=== PATIENT | male | born 1990 | race American Indian/Alaskan Native ===

== ENCOUNTER 2021-09-08 19:15 | Emergency (ER) | payer MEDICAID ==
--- NOTE | 2021-09-08 20:39 | Emergency Department Report ---
<KARINA OLIVEROS - Last Filed: 09/09/21 03:42> ED General Adult HPI - General Stated complaint: CHEST PAIN Time Seen by Provider: 09/08/21 20:28 Source: patient - History of Present Illness Initial comments: 31-year-old Megamilbedoce male pulm complaining of chest pain off and on since yesterday of unknown etiology. Ports no hemoptysis no hematemesis medic easy, no fever, chills, sweats. The chest pain is sharp achy in nature and associated with with palpitations from time to time. -: Gradual Radiation: non-radiation Quality: dull Consistency: constant Improves with: none Worsens with: none Associated Symptoms: denies other symptoms, chest pain. denies: loss of appetite, malaise, nausea/vomiting, shortness of breath, syncope, weakness - Related Data Home Medications Medication Instructions Recorded Confirmed Last Taken No Known Home Medications [No 10/26/13 10/26/13 Unknown Reported Home Medications] Allergies Allergy/AdvReac Type Severity Reaction Status Date / Time No Known Allergies Allergy Unverified 10/26/13 22:35 ED Review of Systems Comment: All other systems reviewed and negative ED Past Medical Hx - Past Medical History Hx Hypertension: Yes Hx Psychiatric Treatment: Yes (DEPRESSION) - Surgical History Additional Surgical History: CIRCUMCISION - Social History Smoking Status: Never Smoker Substance Use Type: None - Medications Home Medications: Home Medications Medication Instructions Recorded Confirmed Last Taken Type No Known Home Medications [No 10/26/13 10/26/13 Unknown History Reported Home Medications] ED Physical Exam - General General appearance: alert, in no apparent distress - Head Head exam: Present: atraumatic, normocephalic - Eye Eye exam: Present: normal appearance, PERRL Pupils: Present: normal accommodation - ENT ENT exam: Present: normal exam, mucous membranes moist - Neck Neck exam: Present: normal inspection, full ROM - Respiratory Respiratory exam: Present: normal lung sounds bilaterally. Absent: respiratory distress, rales, rhonchi, chest wall tenderness, accessory muscle use - Cardiovascular Cardiovascular Exam: Present: regular rate, normal rhythm. Absent: tachycardia, irregular rhythm, systolic murmur, diastolic murmur, rubs, gallop - GI/Abdominal GI/Abdominal exam: Present: soft, normal bowel sounds. Absent: tenderness, guarding, hyperactive bowel sounds, hypoactive bowel sounds, organomegaly - Rectal Rectal exam: Present: deferred - Extremities Exam Extremities exam: Present: normal inspection, full ROM, normal capillary refill - Back Exam Back exam: Present: normal inspection. Absent: CVA tenderness (R), CVA tenderness (L), muscle spasm - Neurological Exam Neurological exam: Present: alert, oriented X3, CN II-XII intact - Psychiatric Psychiatric exam: Present: normal affect, normal mood - Skin Skin exam: Present: warm, dry, intact, normal color. Absent: rash ED Medical Decision Making - Lab Data Result diagrams: 09/08/21 21:01 09/08/21 21:[address] [address] XRay Report Signed Patient: NEVAEH MCKENNA MR#: [id number] : 1990 Acct:[id number] Age/Sex: 31 / M ADM Date: 09/08/21 Loc: ED Attending Dr: Ordering Physician: FANG SAUCEDO Date of Service: 09/08/21 Procedure(s): XR chest routine 2V Accession Number(s): [id number] cc: FANG SAUCEDO Fluoro Time In Minutes: CHEST 2 VIEWS INDICATION / CLINICAL INFORMATION: Chest Pain. COMPARISON: None available. FINDINGS: SUPPORT DEVICES: None. HEART / MEDIASTINUM: No significant abnormality. LUNGS / PLEURA: No significant pulmonary or pleural abnormality. No p neumothorax. ADDITIONAL FINDINGS: No significant additional findings. IMPRESSION: 1. No acute findings. Signer Name: Leonardo Wright MD Signed: 09/08/2021 8:55 PM Workstation Name: [id number] Transcribed By: VIVIANA Dictated By: Leonardo Wright MD Electronically Authenticated By: Leonardo Wright MD Signed Date/Time: 09/08/212054 DD/ 54 TD/TT: - EKG Data EKG shows normal: sinus rhythm Rate: normal - EKG Data Interpretation: normal EKG - Radiology Data Radiology results: report reviewed [address] [address] XRay Report Signed Patient: NEVAEH MCKENNA MR#: [id number] : 1990 Acct:[id number] Age/Sex: 31 / M ADM Date: 09/08/21 Loc: ED Attending Dr: Ordering Physician: FANG SAUCEDO Date of Service: 09/08/21 Procedure(s): XR chest routine 2V Accession Number(s): [id number] cc: FANG SAUCEDO Fluoro Time In Minutes: CHEST 2 VIEWS INDICATION / CLINICAL INFORMATION: Chest Pain. COMPARISON: None available. FINDINGS: SUPPORT DEVICES: None. HEART / MEDIASTINUM: No significant abnormality. LUNGS / PLEURA: No significant pulmonary or pleural abnormality. No pneumothorax. ADDITIONAL FINDINGS: No significant additional findings. IMPRESSION: 1. No acute findings. Signer Name: Leonardo Wright MD Signed: 09/08/2021 8:55 PM Workstation Name: [id number] Transcribed By: VIVIANA Dictated By: Leonardo Wright MD Electronically Authenticated By: Leonardo Wright MD Signed Date/Time: 09/08/212054 DD/ 54 TD/TT: - Medical Decision Making This patient presents with chest pain that is very unlikely angina or acute coronary syndrome. The emergency department evaluation has not identified any cause for suspicion that this chest pain has a cardiac etiology. Based on their history, EKG (which showed no evidence of ischemia or infarction) and imaging, i n addition to the patient's physical exam, I see no evidence at this time for a malignant etiology for the patient's chest pain. There is no acute evidence for pulmonary embolus, acute myocardial infarction, pneumothorax, Boerhaeve syndrome, cardiac tamponade, thoracic artery dissection, or any other emergent cardiac, pulmonary or aortic pathology. Given the low pre-test probability for cardiac etiology of chest pain and the absence of any sign of ischemia or infarction, discharge for outpatient follow-up and further evaluation is reasonable. I have explained to the patient that even though a cardiac problem is very unlikely, follow-up and further testing is required to reduce further the a lready small uncertainty that exists. Other life-threatening diagnoses have been considered. The patient understands the need to return immediately if their symptoms worsen or they develop any new symptoms, and not to engage in any significant exertional activity until follow-up is obtained. ED Disposition Clinical Impression: Chest pain, Palpitations Disposition: 01 HOME / SELF CARE / HOMELESS Is pt being admited?: No Does the pt Need Aspirin: No Condition: Stable Instructions: Nonspecific Chest Pain, Adult Referrals: KATY GALICIA MD [Staff Physician] - 3-5 Days <MARIA ISABEL CASILLAS - Last Filed: 09/12/21 19:53> ED General Adult HPI - History of Present Illness Initial comments: I have reviewed the PA/[employer] MA[employer]GER's note and plan of care. I was available for consultation as needed at all times during the patient's visit in the emergency department but was not consulted on this case. ED Review of Systems ROS: Stated complaint: CHEST PAIN Other details as noted in HPI ED Course Vital Signs 09/08/21 09/09/21 20:12 04:03 Temperature 98.6 F Pulse Rate 68 92 H Respiratory 18 14 Rate Blood Pressure 222/136 Blood Pressure 161/92 [Right] O2 Sat by Pulse 99 100 Oximetry ED Medical Decision Making - Lab Data Result diagrams: 09/08/21 21:01 09/08/21 21:01 - Medical Decision Making I have reviewed the PA[employer] MA[employer]GER's note and plan of care. I was available for consultation as needed at all times during the patient's visit in the emergency department but was not consulted on this case. Patient had BPs in the 220s systolically. Aortic dissection and recreational drug abuse (cocaine, meth) not ruled out. I attempted reaching patient @ his # provided ([phone]), in order to tell patient to return to the ER if his symptoms still persist, but was unable to reach patient. Critical care attestation.: If time is entered above; I have spent that time in minutes in the direct care of this critically ill patient, excluding procedure time.
--- NOTE | 2021-09-08 20:59 | XRay Report ---
CHEST 2 VIEWS INDICATION / CLINICAL INFORMATION: Chest Pain. COMPARISON: None available. FINDINGS: SUPPORT DEVICES: None. HEART / MEDIASTINUM: No significant abnormality. LUNGS / PLEURA: No significant pulmonary or pleural abnormality. No pneumothorax. ADDITIONAL FINDINGS: No significant additional findings. IMPRESSION: 1. No acute findings. Signer Name: Leonardo Wright MD Signed: 09/08/2021 8:55 PM Workstation Name: [id number]
[2021-09-08 21:55] LABS: Basophils % (Auto) 0.4 % (0.0-1.8); Eosinophils # (Auto) 0.1 K/mm3 (0.0-0.4); Eosinophils % (Auto) 1.5 % (0.0-4.3); Hematocrit 45.9 % (35.5-45.6); Hemoglobin 15.2 gm/dl (11.8-15.2); Lymphocytes # (Auto) 2.3 K/mm3 (1.2-5.4); Lymphocytes % (Auto) 29.2 % (13.4-35.0); Mean Corpuscular HGB Conc 33 % (32-34); Mean Corpuscular Volume 92 fl (84-94); Monocytes # (Auto) 0.7 K/mm3 (0.0-0.8); Monocytes % (Auto) 8.3 % (0.0-7.3); Platelet Count 161 K/mm3 (140-440); Red Blood Count 5.01 M/mm3 (3.65-5.03); Red Cell Distribution Width 14.2 % (13.2-15.2)
[2021-09-08 22:10] LABS: Alanine Aminotransferase 27 units/L (7-56); Albumin 4.6 g/dL (3.9-5); BUN/Creatinine Ratio 17; Blood Urea Nitrogen 15 mg/dL (9-20); Calcium 9.1 mg/dL (8.4-10.2); Hemolysis Index 31
[2021-09-09 04:04] VITALS: BP 161/92
--- NOTE | 2021-09-09 10:34 | Electrocardiograph Report ---
[facility] Test Date: 2021-09-08 Test Time: 20:26:02 Pat Name: NEVAEH MCKENNA Department: Room: Gender: M Director Of Automation: LAUREL : 1990 Requested By: KARINA OLIVEROS Order Number: [id number] Reading MD: Zachery Solorio Measurements Intervals [place] Rate: 66 P: 56 WA: 178 QRS: 29 QRSD: 84 T: 11 QT: 382 QTc: 400 Interpretive Statements Sinus rhythm Probable left atrial enlargement ST elev, probable normal early repol pattern No previous ECG available for comparison Electronically Signed On 09-09-2021 10:34:30 EDT by Zachery Solorio
== END 2021-09-09 06:04 | disposition home or self-care (01) ==
LOC: ED 19:15
DX: R07.9 Chest pain, unspecified (principal); R00.2 Palpitations; I10 Essential (primary) hypertension
CPT/HCPCS: 36415; 71046; 80053; 84484; 85025; 93005; 99283